=== PATIENT | female | born 1955 | race Caucasian/White ===

== ENCOUNTER 2020-10-10 19:13 | Emergency (ER) | payer OTHER, SELFPAY ==
[2020-10-10] VITALS (10 sets, daily range): BP systolic 152–190; BP diastolic 79–92; PULSE 64–88; RESP 12–23; TEMP 36.8; O2SAT 95–98; BMI 22.4
--- NOTE | 2020-10-10 19:19 | DI.RAD.S_ITS ---
PROCEDURE: XR CHEST 1V INDICATIONS: chest pain TECHNIQUE: One view of the chest was acquired. COMPARISON: None. FINDINGS: Surgical changes and devices: None. Lungs and pleura: Lungs are clear. No pleural effusions or pneumothorax. Mediastinum: Mediastinal contours appear normal. Heart size is normal. Bones and chest wall: No suspicious bony lesions. Overlying soft tissues appear unremarkable. IMPRESSION: No acute cardiopulmonary disease. Dictated by: Ector Fang M.D. on 10/10/2020 at 19:54 Approved by: Ector Fang M.D. on 10/10/2020 at 19:54
--- NOTE | 2020-10-10 19:33 | ED.GENADULT ---
HPI - General Adult General Chief complaint: Chest Pain Stated complaint: Chest and Heart Pain Time Seen by Provider: 10/10/20 19:14 Source: patient Mode of arrival: Ambulatory Limitations: no limitations History of Present Illness HPI narrative: Patient is a 65-year-old female. Is otherwise healthy who earlier today had an episode of left-sided chest pain. She described it is a sharp pain that went into her back in the left side of her jaw. Did not think it was worse with palpation or movement or breathing. Lasted less than 1 hour. Completely resolved and she has not had any symptoms since that time. She was evaluated by the paramedics on [place]. Had an EKG performed and was instructed to come to the emergency department. She arrived here by private vehicle. She states she has had these symptoms 2 times in the past over the past 15 years. Has been evaluated by Cardiology. Was was told that it was not her heart although she was given a prescription for nitroglycerin. She had some nitroglycerin with her and she did take some of it when the symptoms were happening although she did admit that the nitroglycerin was old and was in a powder form and not a pill form. She did not think that it helped her symptoms at all. Related Data Previous Rx's Medication Instructions Recorded nitroglycerin 0.4 mg SUBLINGUAL Q5M PRN #14 tab 10/10/20 Allergies Allergy/AdvReac Type Severity Reaction Status Date / Time fentanyl [FENTANYL] Allergy Unknown REPORTS Unverified 01/18/18 12:49 SENSITIVITY Sulfa (Sulfonamide Allergy Unknown REPORTS Unverified 01/18/18 12:49 Antibiotics) SENSITIVITY [SULFA (SULFONAMIDE ANTIBIOTICS)] Review of Systems Constitutional Constitutional: Denies fever(s) and Denies headache(s) ENT Ears, Nose, Mouth, and Throat: Denies headache(s) Cardiovascular Cardiovascular: Reports chest pain and Denies dyspnea Respiratory Respiratory: Denies cough and Denies dyspnea Gastrointestinal Gastrointestinal: Denies abdominal pain, Denies nausea and Denies vomiting Genitourinary Genitourinary: Denies dysuria Genitourinary: Denies dysuria Musculoskeletal Musculoskeletal: Denies arthralgias and Denies myalgias Integumentary/Breasts Skin/Breast: Denies lesions and Denies rash Neurologic Neurologic: Denies behavioral changes and Denies headache(s) Psychiatric Psychiatric: Denies behavioral changes Hematologic/Lymphatic Hematologic/Lymphatic: Denies easy bleeding and Denies easy bruising Allergic/Immunologic Allergic/Immunologic: Denies urticaria Patient History Medical History Finger fracture, left Social History Smoking Status: Never smoker Smoking Status: Never smoker alcohol intake frequency: 0-2 drinks per day Substance Use Type: does not use Exam Initial Vital Signs Initial Vital Signs: Vital Signs Temperature 98.2 F 10/10/20 19:20 Pulse Rate 86 10/10/20 19:20 Respiratory Rate 17 10/10/20 19:20 Blood Pressure 190/91 H 10/10/20 19:20 Pulse Oximetry 98 10/10/20 19:20 Const General: cooperative, comfortable, well developed and well groomed Limitations: mental status not altered HENMT Head: normal to inspection and normocephalic Resp Effort & Inspection: normal respiratory effort Auscultation: clear to auscultation bilaterally Cardio Rate: regular rate Rhythm: regular rhythm GI Inspection: non-distended Palpation: soft and No firm Skin Lesions: no lesions Rashes: no rashes Neuro General: patient alert, patient awake and patient oriented x3 Cognition: normal cognition Speech: speech normal Extrem General: normal to inspection and capillary refill normal Psych Appearance: grossly normal and well kempt Scores HEART Score Heart Score history: Slightly Suspicious Heart Score EKG: Normal Heart Score Age: 45-64 years old Heart Score risk factors: 1-2 risk factors Heart Score troponin: < or = to normal limit Heart Score Total: 2 Course Orders Ordered: ED Orders 10/10/20 19:19 XR chest 1V Stat EKG-12 Lead Stat 10/10/20 19:35 Complete Blood Count AUTO DIFF Stat Comprehensive Metabolic Panel Stat Lipase Stat Troponin & CK Cardiac Panel Stat 10/10/20 22:34 Troponin & CK Cardiac Panel Stat Discontinued Medications Aspirin (Aspirin 81 Mg Chew Tab) 324 mg PO NOW ONE Stop: 10/10/20 19:34 Last Admin: 10/10/20 19:53 Dose: 324 mg Documented by: VANIA Vital Signs Vital signs: Vital Signs - 8 hr 10/10/20 19:20 10/10/20 19:38 10/10/20 19:58 Temperature 98.2 F Pulse Rate 86 70 88 Respiratory Rate 17 Blood Pressure 190/91 H 174/92 H Pulse Oximetry 98 98 97 10/10/20 20:00 10/10/20 20:30 10/10/20 21:00 Temperature Pulse Rate 71 73 67 Respiratory Rate 12 23 13 Blood Pressure 158/90 H 174/92 H 156/79 H Pulse Oximetry 97 96 96 10/10/20 21:30 10/10/20 22:00 10/10/20 22:30 Temperature Pulse Rate 67 64 65 Respiratory Rate 19 16 19 Blood Pressure 152/84 H 154/82 H 164/86 H Pulse Oximetry 95 96 97 10/10/20 23:00 Temperature Pulse Rate 64 Respiratory Rate 22 Blood Pressure 153/85 H Pulse Oximetry 97 Medical Decision Making Lab Data Lab results reviewed: Yes I reviewed the patient's lab results. Result diagrams: 10/10/20 19:35 10/10/20 19:35 Labs: Lab Results 10/10/20 10/10/20 10/10/20 Range/Units 19:35 19:35 19:35 WBC 9.1 (4.5-11.0) X10^3/uL RBC 4.40 (4.0-5.2) X10^6/uL Hgb 13.8 (12.0-16.0) g/dL Hct 41.1 (36-46) % MCV 93.3 (80-100) fL MCH 31.4 (26-34) PG MCHC 33.6 (30-36) % RDW 13.4 (11.6-14.8) % Plt Count 255 (150-400) X10^3/uL Neut % (Auto) 66.2 (50-75) % Lymph % (Auto) 27.8 (25-40) % [place] % (Auto) 4.5 (3-14) % Eos % (Auto) 0.9 L (2-4) % Baso % (Auto) 0.6 (0-2) % Neut # (Auto) 6000 (7017-2180) /uL Lymph # (Auto) 2500 (9698-1952) /uL [place] # (Auto) 400 (0-900) /uL Eos # (Auto) 100 (0-450) /uL Baso # (Auto) 100 (0-100) /uL Sodium 137 (137-145) mmol/L Potassium 3.1 L (3.4-5.1) mmol/L Chloride 99 (98-107) mmol/L Carbon Dioxide 31 (22-32) mmol/L BUN 21 H (7-17) mg/dL Creatinine 0.61 (0.52-1.04) mg/dL Estimated GFR > 60.0 (>60) mL/min BUN/Creatinine Ratio 34.4 H (6-22) Glucose 165 H (80-110) mg/dL Calcium 9.7 (8.4-10.2) mg/dL Total Bilirubin 0.5 (0.2-1.3) mg/dL AST 32 (14-36) IU/L ALT 23 (<35) IU/L Alkaline Phosphatase 78 (38-126) U/L Total Creatine Kinase 95 (30-135) U/L CK-MB (CK-2) TNP CK-MB (CK-2) Rel Index TNP Troponin I < 0.012 (0.01-0.034) ng/mL Total Protein 7.7 (6.3-8.2) g/dL Albumin 4.6 (3.5-5.0) g/dL Globulin 3.1 (1.7-4.1) g/dL Albumin/Globulin Ratio 1.5 (1.0-2.8) Lipase 96 (23-300) U/L 10/10/20 Range/Units 22:34 WBC (4.5-11.0) X10^3/uL RBC (4.0-5.2) X10^6/uL Hgb (12.0-16.0) g/dL Hct (36-46) % MCV (80-100) fL MCH (26-34) PG MCHC (30-36) % RDW (11.6-14.8) % Plt Count (150-400) X10^3/uL Neut % (Auto) (50-75) % Lymph % (Auto) (25-40) % [place] % (Auto) (3-14) % Eos % (Auto) (2-4) % Baso % (Auto) (0-2) % Neut # (Auto) (0102-6778) /uL Lymph # (Auto) (9181-7924) /uL [place] # (Auto) (0-900) /uL Eos # (Auto) (0-450) /uL Baso # (Auto) (0-100) /uL Sodium (137-145) mmol/L Potassium (3.4-5.1) mmol/L Chloride (98-107) mmol/L Carbon Dioxide (22-32) mmol/L BUN (7-17) mg/dL Creatinine (0.52-1.04) mg/dL Estimated GFR (>60) mL/min BUN/Creatinine Ratio (6-22) Glucose (80-110) mg/dL Calcium (8.4-10.2) mg/dL Total Bilirubin (0.2-1.3) mg/dL AST (14-36) IU/L ALT (<35) IU/L Alkaline Phosphatase (38-126) U/L Total Creatine Kinase 82 (30-135) U/L CK-MB (CK-2) TNP CK-MB (CK-2) Rel Index TNP Troponin I < 0.012 (0.01-0.034) ng/mL Total Protein (6.3-8.2) g/dL Albumin (3.5-5.0) g/dL Globulin (1.7-4.1) g/dL Albumin/Globulin Ratio (1.0-2.8) Lipase (23-300) U/L Imaging Data Chest x-ray: Radiologist's Impression: [address] [id number] ReportSigned Patient: Yuli GarciaMR#: [id number]: 6Acct:[id number]/Sex: 65 / FDate of Service: 10/10/20Loc: EDAccession Number: [id number] Procedure: XR chest 1V Ordering Provider: Moises Tabor D.O. PROCEDURE: XR CHEST 1V INDICATIONS: chest pain TECHNIQUE: One view of the chest was acquired. COMPARISON: None. FINDINGS: Surgical changes and devices: None. Lungs and pleura: Lungs are clear. No pleural effusions or pneumothorax. Mediastinum: Mediastinal contours appear normal. Heart size is normal. Bones and chest wall: No suspicious bony lesions. Overlying soft tissues appear unremarkable. IMPRESSION: No acute cardiopulmonary disease. Dictated by: Ector Fang M.D. on 10/10/2020 at 19:54 Approved by: Ector Fang M.D. on 10/10/2020 at 19:54 ECG Data Attestation: I personally reviewed and interpreted this ECG as follows: Prior ECG tracings: not available for review Interpretation: Sinus rhythm Ventricular rate of 70 Normal axis Normal QRS Normal QTC No ST T wave changes MDM Narrative Medical decision making narrative: Patient has been symptom free since arrival here in the ER. Troponins negative x2. EKG is unremarkable. Low risk heart score. Had a discussion with her regarding her symptoms. We did discuss her risk for cardiovascular disease. Patient also states that her mother had Prinzmetal angina and she potentially thinks that this may be what is going on with her. Did inform her that she needed to contact her primary doctor and also her operating systems programmer all follow-up to include a stress test. She was given return precautions and follow-up instructions. She expressed understanding and agreement. Discharge Plan Departure Patient Disposition: Home Clinical Impression: Atypical chest pain Instructions: DI for Atypical Chest Pain Activity Restrictions/Additional Instructions: Do recommend you continue all of your medications as directed. Contact your primary doctor and/or operating systems programmer to discuss further workup to include a stress test. Return to the emergency department for any new or worsening symptoms Prescriptions: New nitroglycerin 0.4 mg tablet, sublingual 0.4 mg sublingual Q5M PRN (Reason: chest pain) Qty: 14 RF: 0 Referrals: Albertina Cardenas MD [Primary Care Provider] -
[2020-10-10 19:46] LABS: Add Manual Diff / Slide Review NO; Basophils Absolute Auto 100 /uL (0-100); Basophils Percent Auto 0.6 % (0-2); Eosinophils Absolute Auto 100 /uL (0-450); Eosinophils Percent Auto 0.9 % (2-4); Hematocrit 41.1 % (36-46); Hemoglobin 13.8 g/dL (12.0-16.0); Lymphocytes Absolute Auto 2500 /uL (1100-4500); Lymphocytes Percent Auto 27.8 % (25-40); Mean Corpuscular HGB Conc 33.6 % (30-36); Mean Corpuscular Hemoglobin 31.4 PG (26-34); Mean Corpuscular Volume 93.3 fL (80-100); Monocytes Absolute Auto 400 /uL (0-900); Monocytes Percent Auto 4.5 % (3-14); Neutrophils Absolute Auto 6000 /uL (1500-7000); Neutrophils Percent Auto 66.2 % (50-75); Platelet Count 255 X10^3/uL (150-400); Red Cell Distribution Width 13.4 % (11.6-14.8); White Blood Cell Count 9.1 X10^3/uL (4.5-11.0)
[2020-10-10] MEDS: ASPIRIN 81 MG CHEW TAB 324 MG PO (19:53)
[2020-10-10 19:56] LABS: Alanine Aminotransferase 23 IU/L (<35); Albumin 4.6 g/dL (3.5-5.0); Albumin Globulin Ratio 1.5 (1.0-2.8); Alkaline Phosphatase 78 U/L (38-126); Aspartate Aminotransferase 32 IU/L (14-36); BUN Creatinine Ratio 34.4 (6-22); Bilirubin Total 0.5 mg/dL (0.2-1.3); Blood Urea Nitrogen 21 mg/dL (7-17); Calcium 9.7 mg/dL (8.4-10.2); Carbon Dioxide 31 mmol/L (22-32); Chloride 99 mmol/L (98-107); Creatine Kinase 95 U/L (30-135); Estimated Glomerular Filt Rate > 60.0 mL/min (>60); Globulin 3.1 g/dL (1.7-4.1); Glucose 165 mg/dL (80-110); HEMOLYSIS 15 (0-50); Lipase 96 U/L (23-300); Potassium 3.1 mmol/L (3.4-5.1); Sodium 137 mmol/L (137-145); Total Protein 7.7 g/dL (6.3-8.2)
[2020-10-10 20:08] LABS: Troponin I < 0.012 ng/mL (0.01-0.034)
[2020-10-10 23:18] LABS: Creatine Kinase 82 U/L (30-135)
[2020-10-10 23:31] LABS: Troponin I < 0.012 ng/mL (0.01-0.034)
== END 2020-10-10 23:54 | disposition home or self-care (01) ==
PROVIDERS: Emergency Provider Emergency Medicine; PCP Internal Medicine
DX: R07.89 Other chest pain (principal)
CPT/HCPCS: 36415; 71045; 80053; 82550; 82553; 83690; 84484; 85025; 93005; 99283; 99284